=== PATIENT | female | born 1990 | race Caucasian/White ===

== ENCOUNTER → 2018-10-27 11:00 | Outpatient (CLI) | payer BC, SELFPAY ==
[2017-08-10 21:16] VITALS: BMI 29.2
[2018-10-27 16:35] LABS: Chlamydia Trachomatis by PCR Negative (Negative); Neisserai gonorrhoeae by PCR Negative (Negative); Probe Check PASS; Sample Adequacy Control PASS; Specimen Processing Control PASS
[2018-10-29 13:23] LABS: HPV Reflexed? NOT INDICATED
== END ==
PROVIDERS: Visit Provider Obstetrics & Gynecology
DX: Z12.4 Encounter for screening for malignant neoplasm of cervix (principal); Z11.3 Encounter for screening for infections with a predominantly sexual mode of transmission
CPT/HCPCS: 87491; 87591; 88175; G0145

== ENCOUNTER → 2018-11-10 10:50 | Outpatient (CLI) | payer BC, SELFPAY ==
[2018-11-10 13:57] LABS: Absolute Lymphocyte Count 1.31 X10^3/ul (0.83-4.51); Absolute Neutrophil Count 6.4 X10^3/uL (2.0-7.7); Basophil# 0.02 X10^3/uL; Basophil% 0.2 % (0-1); Eosinophil# 0.12 X10^3/uL; Eosinophils% 1.4 % (0-5); Hematocrit 41.3 % (37-47); Hemoglobin 14.1 g/dl (12.0-15.0); Lymphocyte # 1.31 X10^3/ul (4.0); Lymphocyte % 15.6 % (19-41); Mean Corp Hgb Conc 34.1 g/gl (32-36); Mean Corpuscular Hgb 30.3 pg (27.0-32.0); Mean Corpuscular Volume 88.6 fL (81-99); Mean Platelet Vol. 9.4 fl (6.2-12.0); Monocyte# 0.56 X10^3/uL; Monocyte% 6.7 % (0-10); Neutrophil # 6.37 X10^3/uL (2.7-7.7); Neutrophil % 75.7 % (47-70); Platelet Count 324 K/mm3 (150-450); RBC Distribution Width CV 13.1 % (11.6-14.6); RBC Distribution Width SD 42.2 fl (35.1-43.9); Red Blood Count 4.66 M/mm3 (4.2-5.4); White Blood Count 8.4 K/mm3 (4.4-11.0)
[2018-11-10 13:58] LABS: POSITIVE COUNT NO; POSITIVE DIFFERENTIAL NO; POSITIVE MORPHOLOGY NO
[2018-11-10 13:59] LABS: Color, Urine Yellow (Yellow); Glucose, Dipstick Normal (Normal); Ketone-Dipstick Negative (Negative); Leukocyte Esterase-Dipstick 25 /ul (Negative); Nitrite-Dipstick Negative (Negative); Occult Blood-Urine Negative /ul (Negative); Protein-Dipstick Negative (Negative); Specific Gravity, Urine 1.015 (1.002-1.030); Urine Bilirubin Dipstick Negative (Negative); Urine Clarity Sl. Cloudy (Clear); Urine Urobilinogen Normal (Normal)
[2018-11-10 14:56] LABS: HIV - WCH Non-Reactive (Nonreactive); Rubella IgG > 500.0 IU/mL; Vitamin D,25 Hydroxy 15.4 ng/mL (29.95-100.01)
[2018-11-11 10:19] LABS: HEPATITIS B SURFACE AG Negative (Negative); Hep C Antibodies <0.1 s/co ratio (0.0-0.9)
[2018-11-11 11:11] LABS: Free T3 3.2 pg/mL (2.18-3.98); T4 Free Direct 0.81 ng/dL (0.76-1.46)
[2018-11-13 01:31] LABS: Prenatal RPR NONREACTIVE (NONREACTIVE)
== END ==
PROVIDERS: Visit Provider Obstetrics & Gynecology
DX: O99.281 Endocrine, nutritional and metabolic diseases complicating pregnancy, first trimester (principal); E03.9 Hypothyroidism, unspecified; Z3A.00 Weeks of gestation of pregnancy not specified
CPT/HCPCS: 36415; 81002; 82306; 84439; 84443; 84481; 85025; 86703; 86762; 86803; 87340

== ENCOUNTER → 2018-12-08 09:54 | Outpatient (CLI) | payer BC, SELFPAY ==
[2018-12-08 11:12] LABS: AST(SGOT) 12 U/L (15-37); Alanine Aminotransfer ALT/SGPT 30 U/L (13-56); Albumin, Serum 3.3 g/dL (3.2-5.0); Alkaline Phosphatase 60 U/L (45-117); Bilirubin, Direct 0.09 mg/dL (0.00-0.30); Globulin 3.7 g/dL (2.2-4.2)
== END ==
PROVIDERS: Visit Provider Obstetrics & Gynecology
DX: Z87.59 Personal history of other complications of pregnancy, childbirth and the puerperium (principal); Z34.82 Encounter for supervision of other normal pregnancy, second trimester
CPT/HCPCS: 36415; 80076

== ENCOUNTER 2018-12-16 21:41 | Emergency (ER) | payer BC, SELFPAY ==
[2018-12-16 21:41] VITALS: BP 113/72; PULSE 109; RESP 16; TEMP 36.9; O2SAT 100; BMI 27.8
[2018-12-16] MEDS: proMETHazine 25 MG/ML Syringe 12.5 MG IV (22:35)
[2018-12-16] MEDS: 0.9% Normal Saline 1,000 ML 999 ML IV ×2 (22:35)
[2018-12-16 22:43] LABS: Absolute Lymphocyte Count 0.67 X10^3/ul (0.83-4.51); Eosinophil# 0.01 X10^3/uL; Eosinophils% 0.1 % (0-5); Hematocrit 35.3 % (37-47); Hemoglobin 12.5 g/dl (12.0-15.0); Lymphocyte # 0.67 X10^3/ul (4.0); Lymphocyte % 7.5 % (19-41); Mean Corp Hgb Conc 35.4 g/gl (32-36); Mean Corpuscular Hgb 30.6 pg (27.0-32.0); Mean Corpuscular Volume 86.5 fL (81-99); Mean Platelet Vol. 8.7 fl (6.2-12.0); Monocyte# 0.31 X10^3/uL; Monocyte% 3.5 % (0-10); Neutrophil # 7.97 X10^3/uL (2.7-7.7); Neutrophil % 88.7 % (47-70); POSITIVE COUNT NO; POSITIVE DIFFERENTIAL NO; POSITIVE MORPHOLOGY NO; Platelet Count 225 K/mm3 (150-450); RBC Distribution Width CV 13.8 % (11.6-14.6); RBC Distribution Width SD 43.5 fl (35.1-43.9); Red Blood Count 4.08 M/mm3 (4.2-5.4)
--- NOTE | 2018-12-16 22:56 | ED.VISSUMM ---
- ER Visit Summary Date of Service: 12/16/18 Chief Complaint: Vomiting diarrhea History of Present Illness: The patient is a 28 F who presents the emergency department several days of vomiting diarrhea. She is currently in her second trimester with twins. G [address] Bush. She has not had any issues with this . She states that she has been unable to keep anything down today and is worried about hydration. No fevers. Her daughter and her have had the illness as well. Physical Examination: Afebrile vital signs are stable noted heart rate of 109 Gen: Well-nourished well-developed Head: Normocephalic atraumatic Eyes: Perrl EOMI ENT: TMs clear no rhinorrhea moist mucous membranes Neck: Supple no lymphadenopathy no JVD nontender CVS: Regular rate rhythm no murmurs normal S1-S2 Respiratory: No distress clear to auscultation bilaterally chest nontender Abdomen: Soft nontender nondistended normal bowel sounds no masses Back: Nontender Extremity: Nontender no edema Skin: Normal color no rash Neuro: alert orientated ?3 CN II-XII intact normal strength sensation reflexes gait cerebellar Psych: Normal affect normal mood Test Results: CBC CMP were obtained. Emergency Department Course and Treatment: Patient received IV fluids and Phenergan. She is more comfortable. Bedside ultrasound to document heart rate showed baby A with a heart rate of 143 and baby Bwith a heart rate of 154. There is good movement. P.o. challenge will be given. Patient be discharged home with a prescription for Phenergan encouraged to orally hydrate return if worsening or concerns Impression: 1. Acute gastroenteritis 2. Second trimester This note was generated with [employer] dictation software. It may contain incorrect words, spelling, and punctuation that were not noted in review of the chart prior to signing ED Disposition - Plan for ED Patient: Disposition: Home or Assisted Living Instructions: ED Gastroenteritis Viral Prescriptions: proMETHazine tablet [Phenergan] 25 mg PO Q8H PRN PRN #15 tab PRN Reason: Nausea Referrals: Pretty Bush MD [Primary Care Provider] - 3-5 Days if not improving
[2018-12-16 23:01] LABS: AST(SGOT) 17 U/L (15-37); Alanine Aminotransfer ALT/SGPT 21 U/L (13-56); Albumin, Serum 3.2 g/dL (3.2-5.0); Alkaline Phosphatase 61 U/L (45-117); Anion Gap 8 (5-15); BUN 11 mg/dL (7-18); BUN/Creat Ratio 14.5 RATIO (10-20); Bilirubin, Direct 0.13 mg/dL (0.00-0.30); Calcium,Total 7.8 mg/dL (8.5-10.1); Chloride 106 mmol/L (98-107); Creatinine, Serum 0.76 mg/dL (0.55-1.02); EST Glomerular Filtration Rate 97 mL/min (>60); Est Glom Filt Rate - Afr Amer 118 mL/min (>60); Estimated Creatinine Clearance 92.79 ml/min; Globulin 3.8 g/dL (2.2-4.2); Glucose 91 mg/dL (74-106); Potassium 3.8 mmol/L (3.5-5.1); Sodium Level 136 mmol/L (136-145)
[2018-12-17 00:17] VITALS: BP 120/70; PULSE 91; RESP 17; O2SAT 99
[2018-12-17 01:52] VITALS: BP 120/75; PULSE 88; RESP 15; O2SAT 98
[2018-12-17 01:58] LABS: Color, Urine Yellow (Yellow); Glucose, Dipstick Normal (Normal); Ketone-Dipstick 50 mg/dl (Negative); Leukocyte Esterase-Dipstick Negative /ul (Negative); Mucous, Urine 0 SEEN /hpf (<or=2+); Nitrite-Dipstick Negative (Negative); Occult Blood-Urine Negative /ul (Negative); Protein-Dipstick Negative (Negative); Red Blood Cells-Urine 0 SEEN /hpf (0-5); Urine Bilirubin Dipstick Negative (Negative); Urine Clarity Sl. Cloudy (Clear); Urine Urobilinogen Normal (Normal); Urine pH 6.5 (5.0 - 8.0)
[2018-12-17 02:19] LABS: Bacteria RARE /hpf (None Seen); Squamous Epithelial Cells - UA 5-10 SEEN /hpf (5-10); White Blood Cells 0-5 SEEN /hpf (0-5)
[2018-12-17 02:21] VITALS: BP 120/75; PULSE 77; RESP 15; O2SAT 98
== END 2018-12-17 02:22 | disposition home or self-care (01) ==
PROVIDERS: Emergency Provider Emergency Medicine; Family Provider Obstetrics & Gynecology; PCP Obstetrics & Gynecology
DX: O23.92 Unspecified genitourinary tract infection in pregnancy, second trimester (principal); K52.9 Noninfective gastroenteritis and colitis, unspecified; Z3A.00 Weeks of gestation of pregnancy not specified
CPT/HCPCS: 80048; 80076; 81001; 85025; 96361; 96374; 99285; J7030; A4216

== ENCOUNTER → 2019-03-23 | Outpatient (CLI) | payer BC, SELFPAY ==
[2019-03-23 10:33] LABS: Hematocrit 33.9 % (37-47); Hemoglobin 11.4 g/dL (12.0-15.0); Mean Corp Hgb Conc 33.6 g/dL (32-36); Mean Corpuscular Volume 92.1 fL (81-99); Mean Platelet Vol. 9.8 fl (6.2-12.0); Platelet Count 197 K/mm3 (150-450); RBC Distribution Width CV 12.9 % (11.6-14.6); RBC Distribution Width SD 42.5 fl (35.1-43.9); Red Blood Count 3.68 M/mm3 (4.2-5.4); White Blood Count 8.3 K/mm3 (4.4-11.0)
[2019-03-23 10:55] LABS: Glucose Challenge Gest 1H 50g 137 mg/dL (70-140)
== END | disposition home or self-care (01) ==
PROVIDERS: Visit Provider Obstetrics & Gynecology
DX: Z34.90 Encounter for supervision of normal pregnancy, unspecified, unspecified trimester (principal); Z3A.28 28 weeks gestation of pregnancy
CPT/HCPCS: 36415; 82950; 85027; 86850

== ENCOUNTER 2019-04-08 20:19 | Inpatient (IN) | payer BC, SELFPAY ==
[2019-04-08] MEDS: 0.9% Normal Saline 1,000 ML 999 ML IV (20:05)
[2019-04-08] MEDS: CHLORHEXIDINE GLUC 2% CLOTH 1 EACH TOWELETTE TOPICAL (20:15)
--- NOTE | 2019-04-08 20:26 | PCM.HP.OB ---
- Problem List (1) 30 weeks gestation of Status: Acute (2) labor Status: Acute Qualifiers: labor delivery status: with delivery in third trimester Fetus number: fetus 2 of multiple gestation (3) Monochorionic diamniotic twin gestation in third trimester Status: Acute History Date of Admission: 07/23/17 Final GERRI: 06/15/19 Final GERRI Source: US <20 weeks Gestational age: 30 Weeks and 2 Days History of this : This is a 29 year-old, G [3], P [1011] with monochorionic diamnionic twins at 30 3/7 weeks gestational age with complaint of painful contractions. + movement, no leaking of fluid or vaginal bleeding. hx prior section with preeclampsia. Medical History: Medical History (Last Updated 04/08/19 @ 20:31 by Dina Herman MD) Celiac disease K90.0 Hypothyroidism E03.9 Surgical History: Surgical History (Last Updated 04/08/19 @ 20:32 by Dina Herman MD) H/O nasal polypectomy Z98.890, Z87.09 Hx of foot surgery Z98.890 Previous section Z98.891 Allergies No Known Allergies Allergy (Verified 12/16/18 21:43) Home Medications: Home Medications [place] Thyroid 30 mcg PO DAILY 07/09/16 Vit No.130/Iron/Folic [ Tablet] 1 tab PO DAILY 07/22/17 proMETHazine tablet [Phenergan] 25 mg PO Q8H PRN PRN #15 tab 12/16/18 Smoking Status: Never smoker Alcohol: None Number of Fetus(es): 2 Heart Tracing: A - 135, moderate variability, + accelerations, no decelerations B - 135, moderate variability, + accelerations, no decelerations History Past Pregnancies: Past Pregnancies Delivery Date Name GA/Weeks Outcome Route Weight Gender Labor Length Anesthesia Delivery Location Provider FOB Labs: Labs RPR nr HCV Ab neg HBsAg neg HIV neg A negative Rubella immune ULTRASOUND 03/24/19 -EFW A 1014g (33rd%) -EFW B 1070g (39th%) - 5.2% discordance, normal MVP-A, normal MVP-B. Expected Infant Delivery Method: PARISH Section Review of Systems Respiratory: Denies: Shortness of Breath Neurological: Denies: Blurred vision, Double vision, Headaches Physical Exam Vitals: AVSS General: Alert, Oriented x3, Cooperative, - - writhing with contractions HEENT: Atraumatic, Normocephalic Cardiovascular: Regular rate, Regular Rhythm, Normal S1, Normal S2 Lungs: Clear to auscultation, Normal air movement Abdomen: Soft, Non Tender, Non-Distended, Gravid Neurological: Neuro grossly intact [employer] SU[employer]: Normal external genitalia Estimated gestational size: Appropriate for gestational size Presentation: Breech Cervix Dilation (cm): 8 - BBOW Station: -2 Effacement (%): 90 Assessment/Plan All Active Problems (Last Updated 04/08/19 @ 20:31 by Dina Herman MD) 30 weeks gestation of (Acute) labor (Acute) Monochorionic diamniotic twin gestation in third trimester (Acute) This is a 29 year-old, G [3], P [1011] with monochorionic diamnionic twins at 30 2/7 weeks gestational age in active labor. -Admit for section -IV Magnesium 4g/1g for neuroprotection -Betamethasone x 1 dose -U/A, Ucx
[2019-04-08] MEDS: Magnesium Sulfate 4gm/100mL 4 GM/100 ML IV.SOLN. IV (20:29)
[2019-04-08] MEDS: Sodium Citrate/Citric Acid 30 ML UDC PO (20:31)
[2019-04-08] MEDS: Betamethasone/Betamethasone 30 MG/5 ML Vial 12 MG IM (20:33)
[2019-04-08 20:36] VITALS: BMI 32.3
[2019-04-08 20:37] LABS: Hematocrit 35.2 % (37-47); Mean Corp Hgb Conc 34.1 g/dL (32-36); Mean Corpuscular Hgb 31.5 pg (27.0-32.0); Mean Corpuscular Volume 92.4 fL (81-99); Mean Platelet Vol. 9.6 fl (6.2-12.0); Platelet Count 190 K/mm3 (150-450); RBC Distribution Width CV 13.2 % (11.6-14.6); Red Blood Count 3.81 M/mm3 (4.2-5.4); White Blood Count 13.7 K/mm3 (4.4-11.0)
[2019-04-08] MEDS: Magnesium Sulfate 20 GM/500 ML BAG IV (20:40)
[2019-04-08] MEDS: Cefazolin 2 GM in 0.9% Normal Saline 100 ML IV (20:46)
[2019-04-08 20:56] LABS: Partial Thromboplast Time 25.9 Seconds (24.1-36.2)
[2019-04-08] MEDS: Methylergonovine 0.2 MG/ML Ampul IM (21:30)
[2019-04-08 22:00] VITALS: BP 126/86
[2019-04-08 22:45] VITALS: BP 121/98; BP 126/86; PULSE 99; RESP 16; TEMP 36.6; O2SAT 100
[2019-04-08 23:00] VITALS: BP 117/62; BP 126/86; PULSE 115; RESP 18; O2SAT 100
[2019-04-08] MEDS: Lactated Ringers 1,000 ML 100 ML IV (23:00)
--- NOTE | 2019-04-08 23:05 | PCM.OPRPT ---
Problem List (1) 30 weeks gestation of Status: Acute (2) labor Status: Acute Qualifiers: labor trimester: third trimester labor delivery status: with delivery in third trimester Fetus number: fetus 2 of multiple gestation Qualified Code(s): O60.14X2 - labor third trimester with delivery third trimester, fetus 2 (3) Monochorionic diamniotic twin gestation in third trimester Status: Acute Report of Operation Date of Procedure: 04/08/19 Pre-Operative Diagnosis: labor, prior section, 30 2/7 wga, twins, breech Post-Operative Diagnosis: labor, prior section, 30 2/7wga, twins Description of Surgical Findings:: Normal tubes and ovaries bilaterally, normal uterus A - MALE with Apgars 2, 4, 7 Infant B _ MALE with Apgars 2, 4, 7 cmm technician: Imelda Rios cmm technician: Otilia Molina Type of Anesthesia:: Spinal Anesthesiologist: Pavan Al Specimen's removed: Placenta sent to [facility] Estimated Blood Loss (mL): 1100 Fluids Replaced: 1700 mL Description of Procedure: The patient was taken to the operating room and stenting was performed. Spinal analgesia was administered and the patient positioned to dorsal supine with left lateral tilt. A Nguyen catheter was placed in the abdomen prepped and draped in sterile fashion. Timeout was performed. Spine was found to be adequate. A Pfannenstiel incision was made incising the subcutaneous tissue and rectus fascia at the midline. Subcu tissue was bluntly dissected off the rectus fascia. The fascial incision was extended laterally and cephalad using curved Bhatt scissors. The superior leaflet of the rectus fascia was collapsed using Yana clamps and bluntly and sharply dissected from the underlying rectus abdominal muscle. In similar fashion inferior leaflet of the rectus fascia was also from the underlying muscle. The abdominis muscles were at the midline and peritoneum entered sharply. The peritoneal extension incision was extended. Bladder blade was placed to the abdomen. The vaginoperitoneal fold was identified and incised using Metzenbaum scissors and a bladder flap created. The bladder blade was then repositioned to the abdomen. A low transverse hysterotomy was made using the Metzenbaum scissors with rupture of bag a. The breech was elevated and delivered via the hysterotomy in jose breech. Using gentle bidirectional rotation infant A was delivered to the level of the shoulders and the arms and head delivered spontaneously. There was a loose nuchal cord x3. The cord was milked, doubly clamped and cut and the passed to the awaiting pediatric team. Amniotic sac of baby B was ruptured with clear fluid. was footling breech and the uterine fundus had began mariela around baby B. AT extension was made of the hysterotomy using bandage scissor and the B was subsequently delivered footling breech. Gentle bidirectional rotation was performed delivering to the shoulders and the left and right arms were swept to deliver through the hysterotomy and the had delivered spontaneously. The cord was doubly clamped and cut and the infant passed to the pediatric team also. IV Pitocin was started. The placenta was expressed from the uterus. Uterus was exteriorized and cleared of debris. The hysterotomy was repaired using 0 Vicryl running lock stitch transversely. The T extension was closed using 0 Vicryl running lock stitch at the myometrium. A second myometrial layer was closed similarly. The peritoneum was reapproximated using 3-0 Monocryl. There was some bleeding from the transverse hysterotomy and the lower uterine segment became atonic. IM Methergine was administered and a second first imbricating layer of 0 Vicryl was placed. The uterus and adnexa were returned to the abdomen hysterotomy again inspected and was hemostatic. Jaylan was placed along the denuded vesicouterine peritoneum for further hemostasis. The peritoneum and rectus abdominis muscle was reapproximated using 2-0 Vicryl. The rectus fascia was reapproximated using oh strata fix. The subcutaneous tissue was reapproximated using 2-0 Vicryl. The skin was closed using 4-0 Monocryl by the DIRECTOR OF [employer] under my supervision. A Mepilex occlusive dressing was placed over the incision. Sponge, needle, instrument counts were correct x2. The patient was transferred to the recovery room without complication. - Complications None - Admit VTE Documentation VTE Present on Admission: No VTE Mechan Device Prophylaxis: SCD's VTE Pharm Prophylaxis ordered?: No Delivery Classification: PARISH Final GERRI: 06/15/19 Final GERRI Source: US <20 weeks Gestational age: 30 Weeks and 2 Days [place] doctor who attended delivery (if requested by OB): Jam Frye Indications for : Breech Amniotic Membrane Rupture Type: Artificial Amniotic Fluid Description: Clear Placenta Disposition: Sent with transport team Drain: Nguyen to straight drain Nuchal Cord Compression: Without compression Pre-op Antibiotic Given: Ancef 2 grams IV x1 Pt instructed on risks of surgery: Bleeding, Anesthesia Risks, Need for Future C-Sections, Injury to surrounding structure(s) including bowel and bladder - Admit VTE Documentation VTE Present on Admission: No Baby B - Information Amniotic Membrane Rupture Type: Artificial Presentation: Footling Breech - Operative Information Cord Entanglement: None Infant B gender: Male
[2019-04-08 23:15] VITALS: BP 126/86; BP 134/80; PULSE 119; RESP 16; O2SAT 100
[2019-04-08 23:30] VITALS: BP 121/98; BP 126/86; PULSE 100; RESP 16; TEMP 37.2; O2SAT 99
--- NOTE | 2019-04-08 23:35 | DCINST_ITS ---
<Virgil,Summer - Last Filed: 04/08/19 23:35> Discharge Diet: No Restrictions Discharge Activity: Return to Normal Activity, May not drive while taking narcotic pain medications., May Shower May resume sexual activity in: 4-6 weeks Lifting Restrictions: 10 lb Call your doctor if your incision/area has: Continuous Slow Oozing, Sudden Increased Bleeding, Increased Pain/ Swelling, Increased Redness Suture Line Care: Avoid Pulling/Pushing, Avoid Pinching/Bending Remove Dressing in (days):: 3 Cleanse incision/area with: Soap & Water Additional Instructions: If you experience any of the following, contact your healthcare provider. * Bleeding that soaks a pad every hour for 2 hours * Fever 100.4 or higher * Unrelieved incision or abdominal pain * Swelling, redness, discharge or bleeding from your incision or episiotomy site * Your incision begins to separate * Problems urinating (including inability to urinate or burning while urinating). * Visual changes * Severe headache * Flu-like symptoms * Pain or redness in one of both of your breasts * Pain, warmth, tenderness or swelling in your legs, especially the calf area * Frequent nausea and vomiting * Symptoms of depression or anxiety If you experience any of the following, call 911 or go to the nearest Emergency Room. * Chest pain * Problems breathing * Seizure activity * Partial or complete paralysis of a body part, slurred speech, weakness or drooping of the face, or a sudden inability to walk or hold your balance Allergies/Adverse Reactions: Allergies No Known Allergies Allergy (Verified 04/09/19 00:10) Medications to take at Discharge [place] Thyroid 30 mcg PO DAILY 07/09/16 Vit No.130/Iron/Folic [ Tablet] 1 tab PO DAILY 07/22/17 proMETHazine tablet [Phenergan] 25 mg PO Q8H PRN PRN #15 tab 12/16/18 Aspirin [Aspir 81] 1 tab PO DAILY 04/09/19 Naproxen [Naprosyn] 250 - 500 mg PO TID PRN PRN #30 tab 04/09/19 Oxycodone [Oxyir] 5 mg PO Q4H PRN PRN 7 Days #15 tab 04/09/19 Polyethylene Glycol 3350 [Miralax] 17 gm PO DAILY PRN #14 packet 04/09/19 Senna/Docusate Sodium [Senokot-S] 1 tab PO DAILY PRN #20 tab 04/09/19 The following prescriptions were given: Polyethylene Glycol 3350 [Miralax] 17 gm PO DAILY PRN #14 packet PRN Reason: Constipation Prescription Printed Naproxen [Naprosyn] 250 - 500 mg PO TID PRN PRN #30 tab PRN Reason: Mild-Mod Pain (1-01/15) Prescription Printed Oxycodone [Oxyir] 5 mg PO Q4H PRN PRN 7 Days #15 tab PRN Reason: Mod-Severe Pain (-06/17) Prescription Printed Senna/Docusate Sodium [Senokot-S] 1 tab PO DAILY PRN #20 tab PRN Reason: Constipation Prescription Printed Follow-Up: Call to make an appointment with your doctor for an incision check in 1-2 weeks. You will also need a 6 week post- follow up appointment. Test results from this visit will be discussed in further detail at your follow- up appointment, if applicable. Please Follow Up With: Pretty Bush MD - incision check When: 1-2 weeks Please Follow Up With: Pretty Bush MD - visit When: 6 weeks <Pretty Bush - Last Filed: 04/09/19 22:52> Discharge Activity: May not drive while taking narcotic pain medications., May Shower, May Take a Tub Bath Additional Instructions: If you experience any of the following, contact your healthcare provider. * Bleeding that soaks a pad every hour for 2 hours * Fever 100.4 or higher * Unrelieved incision or abdominal pain * Swelling, redness, discharge or bleeding from your incision or episiotomy site * Your incision begins to separate * Problems urinating (including inability to urinate or burning while urinating). * Visual changes * Severe headache * Flu-like symptoms * Pain or redness in one of both of your breasts * Pain, warmth, tenderness or swelling in your legs, especially the calf area * Frequent nausea and vomiting * Symptoms of depression or anxiety If you experience any of the following, call 911 or go to the nearest Emergency Room. * Chest pain * Problems breathing * Seizure activity * Partial or complete paralysis of a body part, slurred speech, weakness or drooping of the face, or a sudden inability to walk or hold your balance Follow-Up: Call to make an appointment with your doctor for an incision check in 1-2 weeks. You will also need a 6 week post- follow up appointment. Test results from this visit will be discussed in further detail at your follow- up appointment, if applicable.
[2019-04-08 23:45] VITALS: BP 126/86; BP 144/89; PULSE 109; RESP 16; TEMP 37.4; O2SAT 100
[2019-04-09] VITALS (23 sets, daily range): BP systolic 112–155; BP diastolic 62–92; PULSE 70–125; RESP 16–18; TEMP 35.8–39.3; O2SAT 98–100
[2019-04-09 01:15] LABS: Mucous, Urine 0 SEEN /hpf (<or=2+)
[2019-04-09 01:16] LABS: Color, Urine Yellow (Yellow); Glucose, Dipstick Normal (Normal); Ketone-Dipstick Negative (Negative); Leukocyte Esterase-Dipstick 100 /ul (Negative); Nitrite-Dipstick Negative (Negative); Occult Blood-Urine 150 /ul (Negative); Protein-Dipstick 15 mg/dl (Negative); Urine Bilirubin Dipstick Negative (Negative); Urine Clarity Clear (Clear); Urine Urobilinogen Normal (Normal)
[2019-04-09 01:23] LABS: Bacteria RARE /hpf (None Seen); Red Blood Cells-Urine 0-5 SEEN /hpf (0-5); Squamous Epithelial Cells - UA 0-5 SEEN /hpf (5-10); White Blood Cells 5-10 SEEN /hpf (0-5)
[2019-04-09 01:25] LABS: Hematocrit 32.8 % (37-47); Hemoglobin 11.4 g/dL (12.0-15.0); Mean Corp Hgb Conc 34.8 g/dL (32-36); Mean Corpuscular Hgb 32.1 pg (27.0-32.0); Mean Corpuscular Volume 92.4 fL (81-99); Mean Platelet Vol. 9.6 fl (6.2-12.0); Platelet Count 192 K/mm3 (150-450); RBC Distribution Width SD 43.2 fl (35.1-43.9); Red Blood Count 3.55 M/mm3 (4.2-5.4); White Blood Count 13.7 K/mm3 (4.4-11.0)
--- NOTE | 2019-04-09 01:40 | NURSING ---
Verbally explained pumping to mother, mother has previous experience.
[2019-04-09] MEDS: Ketorolac 30 MG/ML Syringe IV ×4 (03:00→23:56)
[2019-04-09 05:35] LABS: Hematocrit 31.9 % (37-47); Hemoglobin 11.3 g/dL (12.0-15.0); Mean Corp Hgb Conc 35.4 g/dL (32-36); Mean Corpuscular Hgb 32.7 pg (27.0-32.0); Mean Corpuscular Volume 92.2 fL (81-99); Mean Platelet Vol. 9.2 fl (6.2-12.0); Platelet Count 195 K/mm3 (150-450); RBC Distribution Width CV 13.1 % (11.6-14.6); RBC Distribution Width SD 42.9 fl (35.1-43.9); Red Blood Count 3.46 M/mm3 (4.2-5.4)
[2019-04-09] MEDS: DiphenhydrAMINE 25 MG Capsule PO (06:44)
--- NOTE | 2019-04-09 08:21 | PN.OBGYN_ITS ---
Patient Problems: Active and Suspected Problems (Last Updated 04/08/19 @ 20:31 by Dina Deutsch MD) 30 weeks gestation of (Acute) labor (Acute) Monochorionic diamniotic twin gestation in third trimester (Acute) Subjective: POD#1 repeat C/S 30 wk delivery, twin IUP, labor Doing OK, Minimal pain. Both babies in [place] and not intubated as of pt last check. States had a lot of gas pain with her prior C/S and wondering about mylicon. Pumping to save colostrum. Does not want to go home later today Spouse is in [place] with the babies. - Physical Exam General: Alert, Oriented x3, Cooperative, No apparent distress HEENT: Atraumatic, EOMI Neck: Supple Abdomen: Soft - Fundus firm NT at 1 cm inferior to umbilicus. Abd softly distended and tympanitic. Skin: Incision - Mepilex CDI. Neurological: Cranial nerves II-XII grossly intact Psych/Mental Status: Normal Affect Vital Signs Temp Pulse Resp BP Pulse Ox 96.5 F L 86 18 120/79 100 04/09/19 06:52 04/09/19 06:52 04/09/19 06:52 04/09/19 06:52 04/09/19 06:52 Oxygen Delivery Method Room Air Weight: 80.286 kg Body Mass Index (BMI) 32.3 Intake and Output for Last 24 Hours 04/07/19 04/08/19 04/09/19 23:59 23:59 23:59 Intake Total 1700 / 1700 300 / 300 Output Total 1600 / 1600 200 / 200 Balance 100 / 100 100 / 100 Laboratory Tests Past 24 Hrs 04/08/19 04/08/19 04/08/19 01:10 20:05 20:05 WBC 13.7 H RBC 3.81 L Hgb 12.0 Hct 35.2 L MCV 92.4 MCH 31.5 MCHC 34.1 RDW Std Deviation 44.0 H RDW Coeff of Kemi 13.2 Plt Count 190 MPV 9.6 APTT 25.9 Urine Color Yellow Urine Clarity Clear Urine pH 6.0 Ur Specific Barrett 1.010 Urine Protein 15 H Urine Glucose (UA) Normal Urine Ketones Negative Urine Occult Blood 150 H Urine Nitrite Negative Urine Bilirubin Negative Urine Urobilinogen Normal Ur Leukocyte Esterase 100 H Urine RBC 0-5 SEEN Urine WBC 5-10 SEEN Ur Squamous Epith Cells 0-5 SEEN Urine Bacteria RARE Urine Mucus 0 SEEN Blood Type Antibody Screen Screen Baby's Blood Type Baby's DESIRE 04/08/19 04/08/19 04/09/19 20:05 20:05 01:03 WBC 13.7 H RBC 3.55 L Hgb 11.4 L Hct 32.8 L MCV 92.4 MCH 32.1 H MCHC 34.8 RDW Std Deviation 43.2 RDW Coeff of Kemi 13.0 Plt Count 192 MPV 9.6 APTT Urine Color Urine Clarity Urine pH Ur Specific Barrett Urine Protein Urine Glucose (UA) Urine Ketones Urine Occult Blood Urine Nitrite Urine Bilirubin Urine Urobilinogen Ur Leukocyte Esterase Urine RBC Urine WBC Ur Squamous Epith Cells Urine Bacteria Urine Mucus Blood Type A NEGATIVE Antibody Screen TNP NEGATIVE Screen Baby's Blood Type Baby's DESIRE 04/09/19 04/09/19 05:20 05:20 WBC 19.0 H RBC 3.46 L Hgb 11.3 L Hct 31.9 L MCV 92.2 MCH 32.7 H MCHC 35.4 RDW Std Deviation 42.9 RDW Coeff of Kemi 13.1 Plt Count 195 MPV 9.2 APTT Urine Color Urine Clarity Urine pH Ur Specific Barrett Urine Protein Urine Glucose (UA) Urine Ketones Urine Occult Blood Urine Nitrite Urine Bilirubin Urine Urobilinogen Ur Leukocyte Esterase Urine RBC Urine WBC Ur Squamous Epith Cells Urine Bacteria Urine Mucus Blood Type Antibody Screen Screen NEGATIVE Baby's Blood Type O POSITIVE Baby's DESIRE NEGATIVE Medical Necessity - Tobacco Use Smoking Status: Never smoker Assessment/Plan All Active Problems (Last Updated 04/08/19 @ 20:31 by Dina Herman MD) 30 weeks gestation of (Acute) labor (Acute) Monochorionic diamniotic twin gestation in third trimester (Acute) Repeat C/S POD#1 30 wk labor. Breech Prior C/S Babies in [facility]. Stable postop. Temp noted in immediate postop. Got Amp, Gent, clinda -- planned for 24 hrs. Hgb stable WBCs increased on check x two yesterday night. Will continue to monitor exam and VS Exam benign Continue routine care. Inc diet and activity as tolerated. Begin po meds. Mylicon scheduled. Colace/ Pericolace scheduled. may try abdominal binder. D/C cochran for voiding trial.
[2019-04-09] MEDS: Thyroid 15 MG Tablet 30 MG PO (08:44)
[2019-04-09] MEDS: Prenatal Vits Tablet 1 TABLET PO (11:18)
[2019-04-09] MEDS: Lactated Ringers 1,000 ML 100 ML IV (11:44)
[2019-04-09 16:30] LABS: Gentamicin, Random 0.4 ug/mL
[2019-04-09] MEDS: Ondansetron 4 MG/2 ML Vial IV ×2 (17:16→21:16)
[2019-04-09] MEDS: 0.9% Saline Lock 10 ML Syringe IV ×2 (17:16→19:55)
[2019-04-09] MEDS: Senna/Docusate Sodium 1 Tablet PO (19:23)
[2019-04-09] MEDS: HYDROmorphone 0.5 MG/0.5 ML SYRINGE IV (22:51)
[2019-04-10] VITALS (7 sets, daily range): BP systolic 115–127; BP diastolic 68–91; PULSE 66–111; RESP 16–18; TEMP 35.8–36.9; O2SAT 97–99
[2019-04-10] MEDS: 0.9% Saline Lock 10 ML Syringe IV ×9 (00:50→23:47)
--- NOTE | 2019-04-10 01:34 | NURSING ---
Addendum entered by Val Jo 04/10/19 01:36: Original Note: 2200 pt getting nauseated after zofran pt had eaten after taking zofran.
--- NOTE | 2019-04-10 01:36 | NURSING ---
2220 pt vomiting partially digested food, cleaned up pt going to walk in [place] after voiding states she feels better after vomiting informed Dr. Wall coming to hospital and will ordering medications for her.pt getting more painful.
--- NOTE | 2019-04-10 01:39 | NURSING ---
2240 pt vomiting again, getting meds for pt.
--- NOTE | 2019-04-10 02:46 | PCM.PN.BLA ---
Progress Note POD#2 Primary C section. Addendum Remains AFEB. Gentamicin daily dose being hung. D/C Ampicillin and clindamycin. Will D/C Gentamicin after this current dose. Repeat CBC in am.
[2019-04-10] MEDS: oxyCODONE 5 MG Tablet PO ×4 (02:55→16:18)
[2019-04-10] MEDS: Bisacodyl 10 MG Suppository RECTAL (04:01)
[2019-04-10 05:21] LABS: Hematocrit 30.4 % (37-47); Hemoglobin 10.5 g/dL (12.0-15.0); Mean Corp Hgb Conc 34.5 g/dL (32-36); Mean Corpuscular Hgb 32.3 pg (27.0-32.0); Mean Corpuscular Volume 93.5 fL (81-99); Mean Platelet Vol. 9.2 fl (6.2-12.0); Platelet Count 230 K/mm3 (150-450); RBC Distribution Width CV 13.2 % (11.6-14.6); RBC Distribution Width SD 45.2 fl (35.1-43.9); Red Blood Count 3.25 M/mm3 (4.2-5.4); White Blood Count 19.7 K/mm3 (4.4-11.0)
[2019-04-10] MEDS: Ketorolac 30 MG/ML Syringe IV ×4 (05:55→23:47)
--- NOTE | 2019-04-10 06:14 | NURSING ---
pt was up and walked in [place], drinking water denies nausea at present going to get up and shower. abdomen remains distended, hypoactive bowel sounds.
--- NOTE | 2019-04-10 08:21 | PCM.PN.OB ---
Patient Problems: Active and Suspected Problems (Last Updated 04/08/19 @ 20:31 by Dina Herman MD) 30 weeks gestation of (Acute) labor (Acute) Monochorionic diamniotic twin gestation in third trimester (Acute) Subjective: POD#2 Repeat C/S labor Br presentation twin A. 30 wk + EGA babies at [facility] and now with one intubated. Doing ok for 30 wk babies. Plans to pump, bottle feed to eventual nursing. Questions about milk supply and when will come in. Having more problems with gas, gas pains along both sides. suppository this am with small bowel movement and minimal flatus. N/V last night, Pepcid bid started. Objective: walking slowly - Physical Exam General: Alert, Oriented x3, Cooperative, No apparent distress HEENT: Atraumatic, EOMI Neck: Supple Abdomen: Soft - Fundus firm at tender c/w postop status at 1 cm inferior to umbilicus. Softly distended and tympanitic. Skin: Incision - Mepilex dressing CDI. Peeling at sides. Psych/Mental Status: Normal Affect Vital Signs Temp Pulse Resp BP Pulse Ox 98.0 F 77 18 116/73 100 04/10/19 04:00 04/10/19 04:00 04/10/19 04:00 04/10/19 04:00 04/09/19 20:20 Oxygen Delivery Method Room Air Weight: 80.286 kg Body Mass Index (BMI) 32.3 Intake and Output for Last 24 Hours 04/08/19 04/09/19 04/10/19 23:59 23:59 23:59 Intake Total 1700 / 1700 826 / 826 Output Total 1600 / 1600 1300 / 1300 Balance 100 / 100 -474 / -474 Laboratory Tests Past 24 Hrs 04/09/19 04/10/19 15:45 05:05 WBC 19.7 H RBC 3.25 L Hgb 10.5 L Hct 30.4 L MCV 93.5 MCH 32.3 H MCHC 34.5 RDW Std Deviation 45.2 H RDW Coeff of Kemi 13.2 Plt Count 230 MPV 9.2 Random Gentamicin 0.4 Medical Necessity - Tobacco Use Smoking Status: Never smoker Assessment/Plan All Active Problems (Last Updated 04/08/19 @ 20:31 by Dina Herman MD) 30 weeks gestation of (Acute) labor (Acute) Monochorionic diamniotic twin gestation in third trimester (Acute) Repeat C/S POD#2 30 wk labor. Breech Prior C/S Babies in [facility]. Stable postop. Temp noted in immediate postop. Got Amp, Gent, clinda -- for 24 hrs. Hgb stable WBCs increased still but AFEB and VSS Will continue to monitor exam and VS Exam benign Inc diet and activity as tolerated. Encouraged ambulation. Slow return of bowel function. Mylicon, Colace/ Pericolace scheduled. Suppository this am with small bowel movement. Continue routine care.
[2019-04-10] MEDS: Thyroid 15 MG Tablet 30 MG PO (09:04)
[2019-04-10] MEDS: Docusate Sodium 100 MG Capsule PO (10:08)
[2019-04-10] MEDS: Acetaminophen 500 MG Tablet 1000 MG PO (11:00)
[2019-04-10] MEDS: Prenatal Vits Tablet 1 TABLET PO (12:26)
[2019-04-10] MEDS: Metoclopramide 10 MG Tablet PO (16:53)
--- NOTE | 2019-04-10 18:19 | NURSING ---
Patient experiencing discomfort from gas pain. Assisted patient to lay on left side. Gave patient some warm prune juice. Patient states that she feels some relief and that she feels like her bowels are moving. Will continue to monitor.
[2019-04-10] MEDS: Senna/Docusate Sodium 1 Tablet PO (20:06)
--- NOTE | 2019-04-10 22:03 | PCM.PN.BLA ---
Progress Note Addendum: POD#2 Repeat C/S 30+ wk labor. Called by RN . Pt with recurrent N/V. Two small stools and passing some flatus but still very sore with gas pains. Using Mylicon and Colace bid. Offered and declined repeat suppository. Tolerating liquids not eating much yet. Afeb. Continue clears. If tolerating these, no need to restart IV. CBC tomorrow AM Continue Reglan po qid. Continue suppository , stool softeners, ambulation to help with bowel motility. Chew gum. Consider caffeine in am. Trial of Ultram (centrally acting narcotic with potentially less bowel effect). Continue care. If persistent abdominal distension: upright film of abdomen, consider NGT
--- NOTE | 2019-04-10 23:18 | NURSING ---
RN atempt x3 for IV placement, unsuccessful. Charge nurse calling Dr Church to room to assist
--- NOTE | 2019-04-10 23:54 | NURSING ---
rn has been at bedside for past 1.5 hours, offering words of encouragement and comfort. [id number] Dr Church in room
[2019-04-11] MEDS: Lactated Ringers 1,000 ML 80 ML IV ×2 (00:08→11:26)
--- NOTE | 2019-04-11 00:50 | RAD_ITS ---
HISTORY: Status post with right abdominal pain and distention XR Abdomen Series W/ Chest 1 View TECHNIQUE: Frontal projection of the chest and 4 frontal projection of the abdomen. # of images incl. paperwork: 5 COMPARISON: None. FINDINGS: CHEST: Normal cardiomediastinal silhouette. Pulmonary vasculature appears normal. The lungs are clear. No pleural effusions or pneumothorax. No acute osseous abnormality of the thorax. ABDOMEN: Moderate diffuse small and large bowel gaseous bowel dilatation. No unusual abdominal calcifications. No definite evidence for pneumoperitoneum. Osseous structures are grossly intact. RAD/Acute Abdomen Inc Chest IMPRESSION: 1. No acute cardiopulmonary disease. 2. Moderate diffuse small and large bowel dilatation; most likely representing ileus in a post patient. at 0217 Reported and signed by: Teddy Andrews MD Electronically Signed: Teddy Andrews MD at 2:16 EDT Tel , Service support ,
--- NOTE | 2019-04-11 01:07 | NURSING ---
back from imaging at this time
--- NOTE | 2019-04-11 01:08 | NURSING ---
0030 late entry . pt taken off unit for requested imaging at this time. accompanied by this RN and her mother
[2019-04-11 01:15] VITALS: BP 122/73; PULSE 87; RESP 16; TEMP 35.8; O2SAT 95
[2019-04-11 02:43] LABS: Hematocrit 28.5 % (37-47); Hemoglobin 9.7 g/dL (12.0-15.0); Mean Corpuscular Hgb 32.3 pg (27.0-32.0); Mean Platelet Vol. 9.4 fl (6.2-12.0); Platelet Count 217 K/mm3 (150-450); RBC Distribution Width CV 13.5 % (11.6-14.6); RBC Distribution Width SD 46.7 fl (35.1-43.9); White Blood Count 13.3 K/mm3 (4.4-11.0)
[2019-04-11 03:13] LABS: ALB/GLOB Ratio 0.5 RATIO (0.9-2.4); AST(SGOT) 27 U/L (15-37); Alanine Aminotransfer ALT/SGPT 14 U/L (13-56); Alkaline Phosphatase 94 U/L (45-117); Amylase 47 U/L (25-115); Anion Gap 8 (5-15); BUN 11 mg/dL (7-18); BUN/Creat Ratio 14.2 RATIO (10-20); Calcium,Total 8.8 mg/dL (8.5-10.1); Chloride 105 mmol/L (98-107); Creatinine, Serum 0.78 mg/dL (0.55-1.02); EST Glomerular Filtration Rate 95 mL/min (>60); Est Glom Filt Rate - Afr Amer 114 mL/min (>60); Estimated Creatinine Clearance 85.69 ml/min; Globulin 4.1 g/dL (2.2-4.2); Glucose 76 mg/dL (74-106); Lipase 74 U/L (73-393); Magnesium 1.8 mg/dL (1.6-2.6); Potassium 4.2 mmol/L (3.5-5.1); Protein, Total 6.1 g/dL (6.4-8.2); Sodium Level 137 mmol/L (136-145)
[2019-04-11] MEDS: Ketorolac 30 MG/ML Syringe IV ×3 (05:49→18:57)
--- NOTE | 2019-04-11 07:20 | PCM.PN.OB ---
Patient Problems: Active and Suspected Problems (Last Updated 04/08/19 @ 20:31 by Dina Herman MD) 30 weeks gestation of (Acute) labor (Acute) Monochorionic diamniotic twin gestation in third trimester (Acute) Subjective: POD#3 repeat C Section at 30 wks labor. Twin IUP breech. Much pain and cramping 2/2 bowel and gas. Has been up walking. N/V again last night. Abdominal X ray consistent with postoperative ileus. toradol for pain. NPO for now and no other pain med planned / scheduled May consider small amt of water with PO med. Objective: Walking with IV pole in hallway with her mother. Appears much more comfortable with ambulation than yesterday. - Physical Exam General: Alert, Oriented x3, Cooperative, No apparent distress HEENT: Atraumatic, EOMI Neck: Supple Extremities: No clubbing, No cyanosis, No edema Neurological: Cranial nerves II-XII grossly intact Psych/Mental Status: Normal Affect Vital Signs Temp Pulse Resp BP Pulse Ox 96.4 F L 87 16 122/73 H 95 04/11/19 01:15 04/11/19 01:15 04/11/19 01:15 04/11/19 01:15 04/11/19 01:15 Oxygen Delivery Method Room Air Weight: 80.286 kg Body Mass Index (BMI) 32.3 Intake and Output for Last 24 Hours 04/09/19 04/10/19 04/11/19 23:59 23:59 23:59 Intake Total 826 / 826 Output Total 1300 / 1300 550 / 550 Balance -474 / -474 -550 / -550 Laboratory Tests Past 24 Hrs 04/10/19 04/10/19 23:40 23:40 WBC 13.3 H RBC 3.00 L Hgb 9.7 L Hct 28.5 L MCV 95.0 MCH 32.3 H MCHC 34.0 RDW Std Deviation 46.7 H RDW Coeff of Kemi 13.5 Plt Count 217 MPV 9.4 Sodium 137 Potassium 4.2 Chloride 105 Carbon Dioxide 24.0 Anion Gap 8 BUN 11 Creatinine 0.78 Estim Creat Clear Calc 85.69 Est GFR (MDRD) Af Amer 114 Est GFR (MDRD) Non-Af 95 BUN/Creatinine Ratio 14.2 Glucose 76 Calcium 8.8 Magnesium 1.8 Total Bilirubin 0.30 AST 27 ALT 14 Alkaline Phosphatase 94 Total Protein 6.1 L Albumin 2.0 L Globulin 4.1 Albumin/Globulin Ratio 0.5 L Amylase 47 Lipase 74 Medical Necessity - Tobacco Use Smoking Status: Never smoker Assessment/Plan All Active Problems (Last Updated 04/08/19 @ 20:31 by Dina Herman MD) 30 weeks gestation of (Acute) labor (Acute) Monochorionic diamniotic twin gestation in third trimester (Acute) Repeat C/S POD#3 30 wk labor. Breech Prior C/S Babies in [facility]. Postoperative ileus on abdominal X ray, no evidence of partial SBO. Slow return of bowel function. -NPO to sips and chips today. -Encourage ambulation, position changes. -Manuela Olson Best results yesterday with suppository. may repeat suppository. -encouraged gum chewing, would like to try mints to stimulate bowel - Ultram not OxyIR for pain, when able to tolerate po. Leukocytosis. -improvement noted in WBCs today. remains afeb Hypothyroidism - PO med with sip Continue care with
[2019-04-11 08:07] VITALS: BP 129/81; PULSE 70; RESP 16; TEMP 36.6; O2SAT 98
[2019-04-11] MEDS: Bisacodyl 10 MG Suppository RECTAL (08:15)
[2019-04-11] MEDS: Docusate Sodium 100 MG Capsule PO ×2 (09:47)
[2019-04-11] MEDS: 0.9% Saline Lock 10 ML Syringe IV ×4 (11:11→22:04)
[2019-04-11] MEDS: Thyroid 15 MG Tablet 30 MG PO (11:11)
[2019-04-11] MEDS: Polyethylene Glycol 3350 17 GM PACKET PO ×2 (11:14→19:46)
[2019-04-11 12:41] LABS: Bedside Glucose 75 mg/dL (70-110)
[2019-04-11 15:22] VITALS: BP 133/80; PULSE 64; RESP 16; TEMP 36.9; O2SAT 97
--- NOTE | 2019-04-11 15:28 | NURSING ---
Soft in all quadrants except right upper. Right upper is softer than this morning's assessment. Patient states that she's passing gas and feels some relief.
[2019-04-11] MEDS: Acetaminophen 500 MG Tablet 1000 MG PO (16:52)
--- NOTE | 2019-04-11 17:40 | NURSING ---
Addendum entered by Pretty Rosas RN 04/11/19 17:43: Late entry from morning assessment 0812 Original Note: Patient planning on pumping every 2-3 hours. Breasts WNL. Pump at bedside. Using swabs to collect colostrum which will be sent to [facility] for her infants with appropriate labels via patient's mother or .
[2019-04-11 20:00] VITALS: BP 125/81; PULSE 68; RESP 18; TEMP 36.3
[2019-04-12 00:05] VITALS: BP 129/80; PULSE 68; RESP 18; TEMP 36.4
[2019-04-12] MEDS: Ketorolac 30 MG/ML Syringe IV ×3 (00:07→12:03)
[2019-04-12] MEDS: Lactated Ringers 1,000 ML 80 ML IV (00:07)
[2019-04-12 03:25] VITALS: BP 128/78; PULSE 56; RESP 18; TEMP 36.3
[2019-04-12 07:57] VITALS: BP 132/84; PULSE 61; RESP 16; TEMP 36.3; O2SAT 100
--- NOTE | 2019-04-12 07:57 | PN.OBGYN_ITS ---
Patient Problems: Active and Suspected Problems (Last Updated 04/08/19 @ 20:31 by Dina Deutsch MD) 30 weeks gestation of (Acute) labor (Acute) Monochorionic diamniotic twin gestation in third trimester (Acute) Subjective: POD#4 repeat C/S 30 + wk twin IUP, breech, labor. doing much better with diet. no N/V. some continued pain at R side/ R flank. She is on low residue diet and tolerating this well. Abdomen less distended. reports loose bowel movement last pm and another BM this morning, more formed. Also passing gas. Pain over lower abdomen is manageable with Toradol and prn tylenol. Normally takes ibuprofen at home if needed. Babies are doing well. Anticipate 6-8 wk hospitalization at [facility]. Eager to go see babies. Objective: walking around room with IV pole, back to bed . Appears much more comfortable than yesterday. - Physical Exam General: Alert, Oriented x3, Cooperative, No apparent distress HEENT: Atraumatic, EOMI Neck: Supple Abdomen: Soft - Abdomen less distended, still with tympany in upper abdomen. Fundus firm and minimally tender at 1-2 cm inferior to umbilicus Extremities: No clubbing, No edema Skin: Incision - CDI. Mepilex removed. Neurological: Cranial nerves II-XII grossly intact Psych/Mental Status: Normal Affect Vital Signs Temp Pulse Resp BP Pulse Ox 97.3 F L 56 L 18 128/78 H 97 04/12/19 03:25 04/12/19 03:25 04/12/19 03:25 04/12/19 03:25 04/11/19 15:22 Oxygen Delivery Method Room Air Weight: 80.286 kg Body Mass Index (BMI) 32.3 Intake and Output for Last 24 Hours 04/10/19 04/11/19 04/12/19 23:59 23:59 23:59 Intake Total 596 / 2980 2384 / 2384 Output Total 550 / 550 0 / 0 Balance -550 / -550 596 / 2980 2384 / 2384 Microbiology Past 72 Hours 04/08/19 01:10 Urine Culture - Final Urine Catheter - Nguyen Culture exhibits no growth. POC Glucose 04/11/19 12:33 POC Glucose 75 Medical Necessity - Tobacco Use Smoking Status: Never smoker Assessment/Plan All Active Problems (Last Updated 04/08/19 @ 20:31 by Dina Herman MD) 30 weeks gestation of (Acute) labor (Acute) Monochorionic diamniotic twin gestation in third trimester (Acute) Repeat C/S POD#4 30 wk labor. Breech Prior C/S Babies in [facility]. Postoperative ileus on abdominal X ray, no evidence of partial SBO. Slow return of bowel function. -much improvement noted. Tolerating low residue diet. BM times two and passing some gas. -Continue ambulation, position changes. -Mylicon, Colace - Ultram not OxyIR for pain, when narcotic pain med needed. Reviewed regular tylenol and ibuprofen dosing for baseline pain relief. Discharge home today. RTO In 1-2 wk for postop incision check, and 6 wk for pp check.
[2019-04-12 08:00] VITALS: BP 138/70; PULSE 75; RESP 16; TEMP 36.2; O2SAT 97
[2019-04-12] MEDS: Acetaminophen 500 MG Tablet 1000 MG PO (08:59)
[2019-04-12] MEDS: Docusate Sodium 100 MG Capsule PO (11:04)
[2019-04-12] MEDS: Thyroid 15 MG Tablet 30 MG PO (11:55)
[2019-04-12] MEDS: Prenatal Vits Tablet 1 TABLET PO (12:02)
[2019-04-12] MEDS: Polyethylene Glycol 3350 17 GM PACKET PO (12:02)
--- NOTE | 2019-04-12 14:30 | CASEMGMT ---
Social Work Labor and Delivery Unit - Brief Assessment Date of Referral/Notification: 04/10/2019 Time of Referral: 1237 Referred By: Dr. Herman Reason for Referral: twin delivery at 30 weeks; infants at [facility]. Date of Intervention: 04/12/2019 Time of Intervention: 1430 Informant: Medical record and mother of baby (MOB) Loren Ontiveros History: MOB is a 29 year old female, G2, P1 to 3 after delivering twin boys this admission. MOB is to father of babies (FOB) Berhane Ontiveros. No reports or indication of abuse or neglect in this relationship. MOB with care starting at 9 weeks this and delivered the twins at 30 weeks. Baby A is Fish who weighed 1299 grams at with Apgars 2, 4, 7 at 1, 5, and 10 minutes of life. Baby B is Yoandy. Birthweight not found by this designer/writer. Agpars noted to be 2, 4, and 7 as well. Baby's transferred to [facility]. MOB and FOB and older daughter, Almita at home. Almita was born 07-23-2017. 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 Chart indicates MOB has a masters degree, no issues with reading, writing, or learning comprehension. MOB denies any history of depression, anxiety, or mood issues. Denies any history of substance dependence or abuse problems. Assessment: MOB reports to have adequate support from family in the area, and family is helping out with care of older daughter while MOB and FOB have been at the hospital. FOB entered room midway through conversation and indicates there is a plan in place for when babies come home, to provide some extra help to MOB in transitioning home to care for 3 children. MOB reports to have needed supplies for the babies, just have to get thing set up. MOB reports to be excited to be discharged today and be able to go and see the babies. FOB reports he has been visiting the babies daily. MOB accepting of information on mood and anxiety disorders. Educated MOB that there will be social workers available at [facility] in [place] to assist with resources and support as needed, that likely the social workers there will review some other resources for baby upon their readiness to discharge to community. Plan: MOB discharging to home today with FOB assisting with transport. Plan to go to [place] to see twins. Social work is available at main campus at [place] and MOB states that a hospice social worker has already met with FOB in [place]. No further needs requested or indicated. -MINERVA Chapman, [employer] TREASURY CONSULTANT
--- NOTE | 2019-04-13 07:33 | PCM.DC.SUM ---
Discharge Date and Diagnosis Date of Admission: 04/08/19 - 30 2/7 wk twin IUP, labor. Breech. Prior C/S Date of Discharge: 04/12/19 - POD#4 repeat C/S, labor Hospital Course and Treatment Operations: - - Repeat C section for labor at 30 2/7 wk with twin IUP Breech , breech Summary of Care Provided: The patient is a 29 year old female presents at 30 2/7 wk with contractions. Rapidly progressed to 8 cm. Breech presentation and taken for repeat C section. Peds present for delivery of twin boys. Twin A Breech -- Ap 2/4/7 Twin B Breech -- Ap 2/4/7 Babies to [facility]. Procedure involved T incision on uterus for delivery of twin B, uterine contraction with footling breech presentation Postoperative course complicated by: 1.) fever within POD#1 -- Amp, Gent, Clinda given for 24 hr after delivery. Placenta sent to [place] along with babies for evaluation. possible infection as source of rapid labor. Leukocytosis also noted. Pt afebrile after POD#1 2.) Postoperative ileus. Resolved with clears, bowel rest, Colace, Miralax, Reglan 3.) Postoperative, acute blood loss anemia. Initial Hgb 11.3 g/dl. Dec to 9.7 g/dl by POD#2 - Physical Exam Vital Signs Temp Pulse Resp BP Pulse Ox 97.2 F L 75 16 138/70 H 97 04/12/19 08:00 04/12/19 08:00 04/12/19 08:00 04/12/19 08:00 04/12/19 08:00 Oxygen Delivery Method Room Air Weight: 80.286 kg Body Mass Index (BMI) 32.3 Intake and Output for Last 24 Hours 04/11/19 04/12/19 04/13/19 23:59 23:59 23:59 Intake Total 596 / 2980 2384 / 2384 Output Total 0 / 0 Balance 596 / 2980 2384 / 2384 Microbiology Past 72 Hours 04/08/19 01:10 Urine Culture - Final Urine Catheter - Nguyen Culture exhibits no growth. Discharge Diet: No Restrictions Discharge Activity: May not drive while taking narcotic pain medications., May Shower, May Take a Tub Bath May resume sexual activity in: 4-6 weeks Call your doctor if your incision/area has: Continuous Slow Oozing, Sudden Increased Bleeding, Increased Pain/ Swelling, Increased Redness Suture Line Care: Avoid Pulling/Pushing, Avoid Pinching/Bending Remove Dressing in (days):: 3 Cleanse incision/area with: Soap & Water Home Medications: Medications to take at Discharge [place] Thyroid 30 mcg PO DAILY 07/09/16 Vit No.130/Iron/Folic [ Tablet] 1 tab PO DAILY 07/22/17 proMETHazine tablet [Phenergan] 25 mg PO Q8H PRN PRN #15 tab 12/16/18 Aspirin [Aspir 81] 1 tab PO DAILY 04/09/19 Naproxen [Naprosyn] 250 - 500 mg PO TID PRN PRN #30 tab 04/09/19 Oxycodone [Oxyir] 5 mg PO Q4H PRN PRN 7 Days #15 tab 04/09/19 Polyethylene Glycol 3350 [Miralax] 17 gm PO DAILY PRN #14 packet 04/09/19 Senna/Docusate Sodium [Senokot-S] 1 tab PO DAILY PRN #20 tab 04/09/19 Ibuprofen [Ibu] 600 mg PO Q6H PRN PRN #30 tab 04/12/19 traMADol [Ultram (G)] 50 mg PO Q6H PRN PRN 4 Days #15 tab 04/12/19 Following Prescrptions Were Given to Patient: Ibuprofen [Ibu] 600 mg PO Q6H PRN PRN #30 tab PRN Reason: Mild-Mod Pain (1-01/15) Prescription Printed Polyethylene Glycol 3350 [Miralax] 17 gm PO DAILY PRN #14 packet PRN Reason: Constipation Prescription Printed Naproxen [Naprosyn] 250 - 500 mg PO TID PRN PRN #30 tab PRN Reason: Mild-Mod Pain (1-01/15) Prescription Printed Oxycodone [Oxyir] 5 mg PO Q4H PRN PRN 7 Days #15 tab PRN Reason: Mod-Severe Pain (-06/17) Prescription Printed Senna/Docusate Sodium [Senokot-S] 1 tab PO DAILY PRN #20 tab PRN Reason: Constipation Prescription Printed traMADol [Ultram (G)] 50 mg PO Q6H PRN PRN 4 Days #15 tab PRN Reason: Mod-Severe Pain (-06/17) Prescription Printed Please Follow Up With: Pretty Bush MD When: 1-2 weeks Please Follow Up With: Pretty Bush MD When: 6 weeks Medical Necessity - Tobacco Use Smoking Status: Never smoker Meaningful Use Info Meaningful Use Diagnoses (Choose all that apply): None applicable
== END 2019-04-12 15:00 | disposition home or self-care (01) | DRG 786 ==
LOC: WPOUT 20:24
PROVIDERS: Obstetrics & Gynecology; Admitting Provider Obstetrics & Gynecology; Family Provider Obstetrics & Gynecology; Visit Provider Obstetrics & Gynecology
DX: O34.211 Maternal care for low transverse scar from previous cesarean delivery (principal); O60.14X2 Preterm labor third trimester with preterm delivery third trimester, fetus 2; O60.14X1 Preterm labor third trimester with preterm delivery third trimester, fetus 1; K91.89 Other postprocedural complications and disorders of digestive system; K56.7 Ileus, unspecified; D62 Acute posthemorrhagic anemia; O90.81 Anemia of the puerperium; N85.8 Other specified noninflammatory disorders of uterus; O30.033 Twin pregnancy, monochorionic/diamniotic, third trimester; O69.81X1 Labor and delivery complicated by cord around neck, without compression, fetus 1; O32.8XX2 Maternal care for other malpresentation of fetus, fetus 2; K90.0 Celiac disease; O99.62 Diseases of the digestive system complicating childbirth; E03.9 Hypothyroidism, unspecified; O99.284 Endocrine, nutritional and metabolic diseases complicating childbirth; Z3A.30 30 weeks gestation of pregnancy; Z37.2 Twins, both liveborn
CPT/HCPCS: 59025; 59050; 74022; 80053; 80170; 81001; 82150; 82962; 83690; 83735; 85027; 85461; 85730; 86850; 86900; 87086; 90384; 99218; J7030; J7120; A4216; G0378; J0702; J2405; J2790; J3490

== ENCOUNTER 2021-05-21 00:18 | Emergency (ER) | payer BC, SELFPAY ==
[2021-05-21 00:20] VITALS: BP 147/88; PULSE 104; RESP 14; TEMP 36.5; O2SAT 99; BMI 28.3
--- NOTE | 2021-05-21 01:10 | EDS_ITS ---
HPI HPI - GI History of Present Illness Chief Complaint: Foreign Body Narrative Narrative: Patient presents with right-sided throat pain and foreign body sensation that she has had for the last 24 hours. She states that she was eating a Nut[employer]rain bar and it felt like the piece of food got stuck on the right side of her throat. She denies any shortness of breath. No drooling or trismus. She states that things have gotten stuck before like larger pills, but after trying soda water and other home remedies, they usually go down after half an hour. She states for the last 24 hours, while her symptoms have improved and it feels as if the foreign body has lowered a little bit down into her throat on the right side, she was told by her primary care provider to be evaluated. She was able to eat and drink over the last [address] [facility] Medical History (Updated 05/21/21 @ 02:11 by Mal Camacho MD) Celiac disease Hypothyroidism Home Medications [place] Thyroid 30 mcg PO DAILY 07/09/16 [History Last Taken 04/08/19 09:00] vit [id number] [ Vitamin] 1 tab PO DAILY 07/22/17 [History Last Taken 07/21/17] promethazine 25 mg PO Q8H PRN PRN #15 tab 12/16/18 [Rx Last Taken Unknown] aspirin 1 tab PO DAILY 04/09/19 [History Last Taken 04/08/19 08:00] naproxen 250 - 500 mg PO TID PRN PRN #30 tab 04/09/19 [Rx Last Taken Unknown] polyethylene glycol 3350 17 gm PO DAILY PRN #14 packet 04/09/19 [Rx Last Taken Unknown] sennosides-docusate sodium 1 tab PO DAILY PRN #20 tab 04/09/19 [Rx Last Taken Unknown] ibuprofen 600 mg PO Q6H PRN PRN #30 tab 04/12/19 [Rx Last Taken Unknown] Allergy/AdvReac Type Severity Reaction Status Date / Time No Known Allergies Allergy Verified 05/21/21 00:19 Surgical History H/O nasal polypectomy Hx of foot surgery Previous section Social History Smoking Status: Never smoker ROS ROS ED ROS Narrative Constitutional: No fever, no chills. HEENT: No sore throat. No neck pain. No loss of vision. No rhinorrhea. Foreign body sensation right side of throat. No drooling, no trismus. Able to eat and drink. Cardiovascular: No chest pain. No palpitations. No pedal edema. Respiratory: No cough, no shortness of breath. Abdominal: No abdominal pain. No nausea. No vomiting. Genitourinary: No dysuria. No hematuria. Musculoskeletal: No myalgias. No arthralgias. Neurologic: No headaches. No dizziness. No lightheadedness. Skin: No rash. No change in color. Psychiatric: No depression. No anxiety. EXAM Physical Exam Narrative Exam Narrative: Afebrile. Vital signs noted. HEENT: Normocephalic. Atraumatic. PERRL, EOMI. Neck soft and supple. No point tenderness or step off. Airway patent. No drooling, no trismus. No noted foreign body. Cardiovascular: Regular rate and rhythm. No murmurs, rubs, or gallops appreciated. Respiratory: No tachypnea. Lungs clear to auscultation bilaterally. Gastrointestinal: Abdomen soft, nontender, with normoactive bowel sounds. No rebound or guarding. Neurological: Awake. Alert. Nonfocal, nonlateralizing. Skin: No rash. Normal color. No pallor. Musculoskeletal: No pedal edema. Full range of motion extremities. Const Vital Signs: 05/21/21 00:20 05/21/21 00:58 Temperature 97.7 F L Temperature Source Temporal Pulse Rate 104 H Respiratory Rate 14 Respiratory Effort Normal Non-Labored Respiratory Pattern Normal Blood Pressure 147/88 H Blood Pressure Mean 107 Pulse Ox 99 Oxygen Delivery Method Room Air MDM MDM MDM Narrative Medical decision making narrative: Patient's pulse ox is 99% on room air without evidence of hypoxia. Additionally, she is able to eat and drink. I do not feel that she has an esophageal foreign body. I do not feel that she has any food stuck in her trachea or on her vocal cords. She has normal phonation. Through shared decision making, it was decided that she would be given viscous lidocaine. I discussed the utility of a CT or any imaging with her, but she declined. I did recommend follow-up with ENT for possible visualization of the epiglottis and the vallecula. After viscous lidocaine, she feels improved. She states the irritation feels improved, and that the foreign body sensation feels like it is lower in her esophagus. She will follow up with ENT and/or gastroenterology. I feel she be discharged safely home with follow-up. Return instructions to the emergency department were reviewed. Disposition is discharged home in stable condition. Discharge Plan Triage Chief Complaint: Foreign Body ED Provider: Mal Camacho Dx/Rx/DC Orders Clinical Impression: Foreign body sensation in throat Instructions: ED Esophageal Foreign Body, Resolved, ED Symptoms With Uncertain Cause Prescriptions: No Action [place] Thyroid 30 mcg PO DAILY RF: 0 vit [id number] [ Vitamin] 1 EACH tablet 1 tab PO DAILY RF: 0 promethazine 25 MG tablet 25 mg PO Q8H PRN PRN (Reason: Nausea) Qty: 15 RF: 0 aspirin 81 MG tablet,delayed release (DR/EC) 1 tab PO DAILY RF: 0 sennosides-docusate sodium 1 TABLET tablet 1 tab PO DAILY PRN (Reason: Constipation) Qty: 20 RF: 0 polyethylene glycol 3350 17 GM packet 17 gm PO DAILY PRN (Reason: Constipation) Qty: 14 RF: 0 naproxen 250 MG tablet 250 - 500 mg PO TID PRN PRN (Reason: Mild-Mod Pain (1-5/10)) Qty: 30 RF: 0 ibuprofen 600 MG tablet 600 mg PO Q6H PRN PRN (Reason: Mild-Mod Pain (1-5/10)) Qty: 30 RF: 0 Primary Care Provider: Steve Mix Referrals: Steve Mix DO [Primary Care Provider] - 05/21/21 Disposition Disposition: Home, Self Care
[2021-05-21 02:19] VITALS: PULSE 78; RESP 19; O2SAT 99
== END 2021-05-21 02:19 | disposition home or self-care (01) ==
PROVIDERS: Emergency Provider Emergency Medicine; PCP Student in an Organized Health Care Education/Training Program
DX: R09.89 Other specified symptoms and signs involving the circulatory and respiratory systems (principal); E03.9 Hypothyroidism, unspecified; K90.0 Celiac disease; Z79.82 Long term (current) use of aspirin; Z79.899 Other long term (current) drug therapy
CPT/HCPCS: 99283

== ENCOUNTER → 2021-08-28 | Outpatient (CLI) | payer BC, SELFPAY ==
[2021-09-05 13:47] LABS: HPV Reflexed? NOT INDICATED
== END | disposition home or self-care (01) ==
LOC: LABSPEC 14:14
PROVIDERS: PCP Student in an Organized Health Care Education/Training Program; Visit Provider Obstetrics & Gynecology
DX: Z12.4 Encounter for screening for malignant neoplasm of cervix (principal)
CPT/HCPCS: 88175; G0145